=== PATIENT | male | born 1990 | race African-American/Black ===

== ENCOUNTER 2019-06-27 14:36 | Emergency (ER) | payer SELFPAY ==
[~2019-06-27] VITALS: Ht 175.3 cm; Wt 86.0 kg
[2019-06-27 14:49] VITALS: BP 132/96
[2019-06-27] MEDS ORDERED: TETANUS, DIPHTHERIA, PERTUSSIS VAC/PF 0.5ML (>7YR OLD) IM ONE (15:45)
[2019-06-27] MEDS ORDERED: LIDOCAINE 1%/EPI 1:100,000 10 ML VIAL IJ ONE (15:45)
[2019-06-27] MEDS ORDERED: BACITRACIN ZINC OINT UDPKT TOP ONE (15:45)
[2019-06-27] MEDS ORDERED: IBUPROFEN 600MG TABLET PO ONE (15:45)
[2019-06-27] MEDS ORDERED: LIDOCAINE HCL/EPINEPHRINE 1%-EPI 1:100,000 20 ML VIAL INFIL NR (15:54)
== END 2019-06-27 17:18 | disposition home or self-care (01) ==
LOC: ER 14:36
DX: S61.412A Laceration without foreign body of left hand, initial encounter (principal); W45.8XXA Other foreign body or object entering through skin, initial encounter; Y93.89 Activity, other specified; Y92.89 Other specified places as the place of occurrence of the external cause; Y99.8 Other external cause status
CPT/HCPCS: 12001; 73130; 90471; 90715; 99283; J3490

== ENCOUNTER 2019-06-29 10:54 | Emergency (ER) | payer SELFPAY ==
[~2019-06-29] VITALS: Ht 182.9 cm; Wt 68.0 kg
[2019-06-29] MEDS ORDERED: BACITRACIN ZINC OINT UDPKT TOP ONE (13:15)
[2019-06-29 13:26] VITALS: BP 147/74
== END 2019-06-29 13:56 | disposition home or self-care (01) ==
LOC: ER 10:54
DX: S61.215D Laceration without foreign body of left ring finger without damage to nail, subsequent encounter (principal); S61.213D Laceration without foreign body of left middle finger without damage to nail, subsequent encounter; X58.XXXD Exposure to other specified factors, subsequent encounter
CPT/HCPCS: 99282; 99283